=== PATIENT | female | born 1985 | race African-American/Black ===

== ENCOUNTER → 2016-10-20 | Emergency (ER) | payer OTHER ==
[2016-10-20 20:54] VITALS: BMI 18.6
--- NOTE | 2016-10-20 22:38 | PDOC ---
History of Present Illness - General History Source: Patient Exam Limitations: No Limitations - History of Present Illness Initial Comments: 10/20/16 22:46 The patient is a 30 year old female with no significant past medical history who presents to the ED for 1 day of left-sided headache and left eye pain. Patient describes her pain to the left eye as heaviness and states she feels some pins and needles sensation in the left eye with some blurry vision. States she has glasses, but does not wear them and she does not wear contacts. She also has complaints of abdominal cramping, but no nausea, vomiting, or diarrhea. The patient denies fever, chills, cough, SOB, chest pain, and palpitations. Allergies: NKDA Social History: No alcohol, tobacco, or drug use reported. Past Surgical History: None reported PCP: Dr. Remi Madera <Lian Zhang - Last Filed: 10/20/16 22:46> - General History Source: Patient <Jose Manuel Canada - Last Filed: 10/21/16 19:30> - General Chief Complaint: Headache Stated Complaint: HEADACHE/BODY ACHE/SORE THROAT Time Seen by Provider: 10/20/16 21:52 Past History <Lian Zhang - Last Filed: 10/20/16 22:46> - Past Medical History Suicide Attempt (Hx): No - Immunization History Immunization Up to Date: Yes - Psycho/Social/Smoking Cessation Hx Anxiety: No Suicidal Ideation: No Smoking Status: No Smoking History: Never smoked Number of Cigarettes Smoked Daily: 0 Hx Alcohol Use: No Drug/Substance Use Hx: No Substance Use Type: Alcohol <Jose Manuel Canada - Last Filed: 10/21/16 19:30> - Past Medical History Allergies/Adverse Reactions: Allergies Allergy/AdvReac Type Severity Reaction Status Date / Time No Known Allergies Allergy Verified 10/20/16 20:52 Home Medications: Ambulatory Orders NK [No Known Home Medication] 10/20/16 Review of Systems - Review of Systems Able to Perform ROS?: Yes Comments:: 10/20/16 22:47 CONSTITUTIONAL: Absent: fever, no chills, no fatigue EYES: +L eye pain, L eye blurry vision ENT: Absent: ear pain, no sore throat CARDIOVASCULAR: Absent: chest pain, no palpitations RESPIRATORY: Absent: cough, no SOB GI: Absent: abdominal pain, no nausea, no vomiting, no constipation, no diarrhea GENITOURINARY: Absent: dysuria, no frequency, no hematuria MUSCULOSKELETAL: Absent: back pain, no arthralgia, no myalgia SKIN: Absent: rash NEURO: +L sided headache <Lian Zhang - Last Filed: 10/20/16 22:46> *Physical Exam - Vital Signs Last Vital Signs Temp Pulse Resp BP Pulse Ox 98.4 F 94 H 18 133/72 99 10/20/16 20:52 10/20/16 20:52 10/20/16 20:52 10/20/16 20:52 10/20/16 20:52 - Physical Exam Comments: 10/20/16 22:47 GENERAL: Well-appearing, well-nourished. No apparent distress. HEENT: Normocephalic, atraumatic. PERRL, EOM intact. CARDIOVASCULAR: Normal S1, S2. Regular rate and rhythm. PULMONARY: Clear to auscultation bilaterally. ABDOMEN: Soft, non-distended, non-tender. EXTREMITIES: Normal ROM in all four extremities. No gross deformities. SKIN: Warm, dry. No rash NEUROLOGICAL: No focal neurological deficits. <Lian Zhang - Last Filed: 10/20/16 22:46> - Vital Signs Last Vital Signs Temp Pulse Resp BP Pulse Ox 98.4 F 94 H 18 133/72 99 10/20/16 20:52 10/20/16 20:52 10/20/16 20:52 10/20/16 20:52 10/20/16 20:52 <Jose Manuel Canada - Last Filed: 10/21/16 19:30> Medical Decision Making - Medical Decision Making 10/21/16 19:30 Dr. Canada: The scribe's documentation has been prepared under my direction and personally reviewed by me in its entirery. I confirm that the note above accurately reflects all work, treatment, procedures, and medical decision making performed by me. <Jose Manuel Canada - Last Filed: 10/21/16 19:30> *DC/Admit/Observation/Transfer - Attestations Scribe Attestion: 10/20/16 22:47 Documentation prepared by Lian Zhang, acting as medical aides teacher for Jose Manuel Canada MD/DO. <Lian Zhang - Last Filed: 10/20/16 22:46> - Discharge Dispostion Admit: No <Jose Manuel Canada - Last Filed: 10/21/16 19:30> Diagnosis at time of Disposition: Headache - Referrals Referrals: Remi Madera MD [Primary Care Provider] - - Patient Instructions Printed Discharge Instructions: DI for Headache Additional Instructions: Please follow up with your doctor if headache get worse. Have your eyes checked by an opthalmologist or an software sales manager. - Post Discharge Activity Work/School Note: Back to Work
[2016-10-20 22:55] LABS: URINE APPEARANCE CLEAR; URINE BILIRUBIN NEGATIVE (NEGATIVE); URINE BLOOD NEGATIVE (NEGATIVE); URINE COLOR LTYELLOW; URINE GLUCOSE (UA) NEGATIVE (NEGATIVE); URINE KETONE NEGATIVE (NEGATIVE); URINE LEUK ESTERASE NEGATIVE (NEGATIVE); URINE NITRITE NEGATIVE (NEGATIVE); URINE PROTEIN NEGATIVE (NEGATIVE); URINE UROBILINOGEN 2.0 E.U/dl E.U./dl (0.2-1.0)
[2016-10-21 00:50] VITALS: BP 141/95; PULSE 89; TEMP 99.1
== END | disposition home or self-care (01) ==
LOC: JER 20:42
DX: R51 Headache (principal)
CPT/HCPCS: 70450-TC; 81003; 84703; 99283-25

== ENCOUNTER 2016-11-16 17:01 | Emergency (ER) | payer OTHER ==
[2016-11-16 17:11] VITALS: BMI 25.0
--- NOTE | 2016-11-16 17:45 | PDOC ---
History of Present Illness - General History Source: Patient Exam Limitations: No Limitations <Eva Mascorro - Last Filed: 11/16/16 18:50> - History of Present Illness Initial Comments: 11/16/16 17:58 Patient is a 30 year old female with no significant medical hx who is presenting to the ED with nausea, suprapubic pain, and breast discharge for one day. The patient began experiencing symptoms after she got out of the shower today. She states that she started having some nausea and suprapubic pain but denies any vomiting, diarrhea, or urinary complaints. The patient states that she felt her left breast was swollen, so she squeezed them and noticed some white/tannish colored discharge expel from her left nipple. She also endorses some dizziness since onset of her symptoms. The patient is not aware if shes . Denies fevers, chills, vaginal bleeding, or vaginal discharge. LNMP: 10/30/16, G1/A1 Patient was seen in the ED one month (10/20/16) ago for headache, blurry vision and left eye pain. During her stay, she received a head CT which was WNL. <Naz Mcmahon - Last Filed: 11/16/16 19:01> <La Nena Biggs - Last Filed: 11/16/16 21:48> - General Chief Complaint: Pain Stated Complaint: ABDOMINAL PAIN Time Seen by Provider: 11/16/16 17:28 Past History - Past Medical History Suicide Attempt (Hx): No Thyroid Disease: No - Immunization History Immunization Up to Date: Yes - Psycho/Social/Smoking Cessation Hx Anxiety: No Suicidal Ideation: No Smoking Status: No Smoking History: Never smoked Have you smoked in the past 12 months: No Number of Cigarettes Smoked Daily: 0 Information on smoking cessation initiated: No Hx Alcohol Use: No Drug/Substance Use Hx: No Substance Use Type: Alcohol <Eva Mascorro - Last Filed: 11/16/16 18:50> <Naz Mcmahon - Last Filed: 11/16/16 19:01> <La Nena Biggs - Last Filed: 11/16/16 21:48> - Past Medical History Allergies/Adverse Reactions: Allergies Allergy/AdvReac Type Severity Reaction Status Date / Time No Known Allergies Allergy Verified 11/16/16 17:11 Home Medications: Ambulatory Orders NK [No Known Home Medication] 10/20/16 Review of Systems - Review of Systems Comments:: 11/16/16 17:58 CONSTITUTIONAL: Absent: fever, chills, diaphoresis, generalized weakness, malaise, loss of appetite HEENT: Absent: rhinorrhea, nasal congestion, throat pain, throat swelling, difficulty swallowing, mouth swelling, ear pain, eye pain, visual changes CARDIOVASCULAR: Absent: chest pain, syncope, palpitations, irregular heart rate, lightheadedness , peripheral edema RESPIRATORY: Absent: cough, shortness of breath, dyspnea with exertion, orthopnea, wheezing, stridor, hemoptysis BREASTS: Present: discharge, left breast swelling Absent: redness, pain GASTROINTESTINAL: Present: suprapubic pain, nausea Absent: abdominal distension, vomiting, diarrhea, constipation, melena, hematochezia GENITOURINARY: Absent: dysuria, frequency, urgency, hesitancy, hematuria, flank pain, genital pain MUSCULOSKELETAL: Absent: myalgia, arthralgia, joint swelling SKIN: Absent: rash, itching, pallor HEMATOLOGIC/IMMUNOLOGIC: Absent: easy bleeding, easy bruising, lymphadenopathy, frequent infections ENDOCRINE: Absent: unexplained weight gain, unexplained weight loss, heat intolerance, cold intolerance NEUROLOGIC: Present: dizziness Absent: headache, focal weakness or paresthesia, unsteady gait, seizure, mental status changes, bladder or bowel incontinence. PSYCHIATRIC: Absent: anxiety, depression, suicidal or homicidal ideation, hallucinations <Naz Mcmahon - Last Filed: 11/16/16 19:01> *Physical Exam - Vital Signs Last Vital Signs Temp Pulse Resp BP Pulse Ox 98.8 F 90 18 142/79 100 11/16/16 17:08 11/16/16 17:08 11/16/16 17:08 11/16/16 17:08 11/16/16 17:08 <Eva Mascorro - Last Filed: 11/16/16 18:50> - Vital Signs Last Vital Signs Temp Pulse Resp BP Pulse Ox 98.8 F 90 18 142/79 100 11/16/16 17:08 11/16/16 17:08 11/16/16 17:08 11/16/16 17:08 11/16/16 17:08 - Physical Exam Comments: 11/16/16 18:00 GENERAL: Well developed, well nourished. Awake and alert. No acute distress. HEENT: Normocephalic, atraumatic. PERRLA, EOMI. No conjunctival pallor. Sclera are non- icteric. Moist mucous membranes. Oropharynx is clear. NECK: Supple. Full ROM. No JVD. Carotid pulses 2+ and symmetric, without bruits. No thyromegaly. No lymphadenopathy. CARDIOVASCULAR: Regular rate and rhythm. No murmurs, rubs, or gallops. Distal pulses are 2+ and symmetric. BREAST: Breasts are equal. No erythema, no edema, no peau dorange. No masses felt on either side. Nipples not inverted. Clear/white discharge expressed from both breasts, mostly on the left. PULMONARY: No evidence of respiratory distress. Lungs clear to auscultation bilaterally. No wheezing, rales or rhonchi. ABDOMINAL: Soft. Suprapubic tenderness. Non-distended. No rebound or guarding. No organomegaly. Normoactive bowel sounds. MUSCULOSKELETAL: Normal range of motion at all joints. No bony deformities or tenderness. No CVA tenderness. EXTREMITIES: No cyanosis. No clubbing. No edema. No calf tenderness. SKIN: Warm and dry. Normal capillary refill. No rashes. No jaundice. NEUROLOGICAL: Alert, awake, appropriate. Cranial nerves 2-12 intact. Normal speech. Gait is normal without ataxia. PSYCHIATRIC: Cooperative. Good eye contact. Appropriate mood and affect. <Naz Mcmahon - Last Filed: 11/16/16 19:01> - Vital Signs Last Vital Signs Temp Pulse Resp BP Pulse Ox 98.2 F 85 17 135/75 98 11/16/16 19:37 11/16/16 19:37 11/16/16 19:37 11/16/16 19:37 11/16/16 19:37 <La Nena Biggs - Last Filed: 11/16/16 21:48> ED Treatment Course - ADDITIONAL ORDERS Additional order review: Laboratory Results 11/16/16 11/16/16 18:30 18:05 TSH 0.85 Free T4 1.11 Urine Color Ltyellow Urine Appearance Clear Urine pH 7.0 Ur Specific [place] 1.020 Urine Protein Negative Urine Glucose (UA) Negative Urine Ketones Negative Urine Blood Negative Urine Nitrite Negative Urine Bilirubin Negative Urine Urobilinogen Negative Ur Leukocyte Esterase Trace H Urine RBC 1 Urine WBC 9 Ur Epithelial Cells Rare Urine Bacteria Rare Urine Mucus Rare Urine HCG, Qual Negative <La Nena Biggs - Last Filed: 11/16/16 21:48> Medical Decision Making - Medical Decision Making A/P: 30 y/o afebrile female with nipple discharge today, along with nausea and lower abdominal pain. Plan is as follows: 1. UA/hcg/culture hcg - negative Will send for head CT and order Prolactin level as well as Thyroid studies to rule out pituitary adenoma. Spoke with the patient to inform her of the plan. She informs me that she was seen here in October for visual changes and had a CT scan of the head that was negative. Cancelled order for a repeat CT scan of the head. She never followed up with recommended value engineer. Will send prolactin and thyroid studies. Once blood work is resulted will page Dr. Stoddard. I am signing this patient out to my colleague: WESTON Biggs In brief, this patient is being seen in the ED for a chief complaint of: nipple discharge. I have completed the initial assessment interview note and have ordered: UA/hcg/ culture, prolactin, thyroid studies I have reviewed the following results: UA/hcg Pending results are: prolactin, thyroid Please call the Neurologist medical device sales consultant: Dr. Stoddard Plan for disposition is as follows: Pending A portion of this note was written by my scribe, under my supervision. <Eva Mascorro - Last Filed: 11/16/16 18:50> - Medical Decision Making 11/16/16 21:41 Lab does not result Prolactin levels in ED setting, this is a send out. Spoke with Dr. Stoddard and explained situation, patient complains, and symptoms she is experiencing. He would like to see patient in outpatient setting. This information was also discussed with patient and she agreed to follow up. MRI not needed at this time. <La Nena Biggs - Last Filed: 11/16/16 21:48> *DC/Admit/Observation/Transfer <Eva Mascorro - Last Filed: 11/16/16 18:50> - Attestations Scribe Attestion: 11/16/16 18:01 Documentation prepared by Naz Mcmahon, acting as hospital medical assistant for Stevenson Musa MD. <Naz Mcmahon - Last Filed: 11/16/16 19:01> - Discharge Dispostion Admit: No <La Nena Biggs - Last Filed: 11/16/16 21:48> Diagnosis at time of Disposition: Visual changes, Nipple discharge - Discharge Dispostion Disposition: HOME Condition at time of disposition: Stable - Referrals Referrals: Yang Stoddard MD [Staff Physician] - Tylor Coy MD [Staff Physician] - - Patient Instructions Printed Discharge Instructions: Pituitary Adenoma Additional Instructions: Follow up with Dr. Stoddard (Neurology). Call to schedule appointment tomorrow. Also, follow up with Dr. Coy (Endocrinology/Primary Care) to establish care. Call to schedule appointment. Follow up with both doctors, this is very important going forward in trying to come to conclusion as discussed. Return if symptoms worsen or any concerns for further evaluation. Print Language: IRISH
[2016-11-16 18:16] LABS: URINE APPEARANCE CLEAR; URINE BILIRUBIN NEGATIVE (NEGATIVE); URINE BLOOD NEGATIVE (NEGATIVE); URINE COLOR LTYELLOW; URINE GLUCOSE (UA) NEGATIVE (NEGATIVE); URINE KETONE NEGATIVE (NEGATIVE); URINE NITRITE NEGATIVE (NEGATIVE); URINE PROTEIN NEGATIVE (NEGATIVE); URINE UROBILINOGEN NEGATIVE E.U./dl (0.2-1.0)
[2016-11-16 18:19] LABS: URINE LEUK ESTERASE TRACE (NEGATIVE)
[2016-11-16 18:20] LABS: URINE RBC 1 /hpf (0-3); URINE WBC 9 /hpf (3-5)
[2016-11-16 18:21] LABS: URINE BACTERIA RARE /hpf (NONE SEEN); URINE MUCUS RARE
--- NOTE | 2016-11-16 18:27 | PDOC ---
*Physical Exam - Vital Signs Last Vital Signs Temp Pulse Resp BP Pulse Ox 98.8 F 90 18 142/79 100 11/16/16 17:08 11/16/16 17:08 11/16/16 17:08 11/16/16 17:08 11/16/16 17:08 ED Treatment Course - ADDITIONAL ORDERS Additional order review: Laboratory Results 11/16/16 18:05 Urine Color Ltyellow Urine Appearance Clear Urine pH 7.0 Urine Protein Negative Urine Glucose (UA) Negative Urine Ketones Negative Urine Blood Negative Urine Nitrite Negative Urine Bilirubin Negative Urine Urobilinogen Negative Ur Leukocyte Esterase Trace H Urine RBC 1 Urine WBC 9 Ur Epithelial Cells Rare Urine Bacteria Rare Urine Mucus Rare Urine HCG, Qual Negative Medical Decision Making - Medical Decision Making 11/16/16 18:27 Pt seen by the Advanced Practice Provider under my direct supervision Ancillary studies reviewed I agree with plan as outlined by the Advanced Practice Provider RALPH Alvarenga 11/16/16 18:48 Pt's findings are concerning for pituitary/sellar mass. Labs ordered. Must consult neurology for urgent MRI of brain for further evaluation. *DC/Admit/Observation/Transfer Diagnosis at time of Disposition: Visual changes, Nipple discharge - Discharge Dispostion Disposition: HOME Condition at time of disposition: Stable - Referrals Referrals: Yang Stoddard MD [Staff Physician] - Tylor Coy MD [Staff Physician] - - Patient Instructions Printed Discharge Instructions: Pituitary Adenoma Additional Instructions: Follow up with Dr. Stoddard (Neurology). Call to schedule appointment tomorrow. Also, follow up with Dr. Coy (Endocrinology/Primary Care) to establish care. Call to schedule appointment. Follow up with both doctors, this is very important going forward in trying to come to conclusion as discussed. Return if symptoms worsen or any concerns for further evaluation. Print Language: [place]ICAN CITIZEN - Post Discharge Activity Work/School Note: Back to Work
[2016-11-16 19:21] LABS: FREE T4 1.11 ng/dl (0.76-1.46); THYROID STIMULATING HORMONE 0.85 uIU/ml (0.358-3.74)
[2016-11-16 21:55] VITALS: BP 130/72; PULSE 78; TEMP 97.7
[2016-11-18 06:06] LABS: FREE T3 3.1 pg/mL (2.0-4.4); PROLACTIN 18.3 ng/mL (4.8-23.3)
== END 2016-11-16 22:02 | disposition home or self-care (01) ==
LOC: JER 17:01
DX: N64.52 Nipple discharge (principal); H53.8 Other visual disturbances
CPT/HCPCS: 36415; 81003; 81015; 84146; 84439; 84443; 84481; 84703; 87086; 99282-25

== ENCOUNTER 2018-04-27 23:48 | Emergency (ER) | payer OTHER ==
[2018-04-27 23:59] VITALS: BP 127/85; PULSE 86; TEMP 98.1; BMI 28.0
[2018-04-28] MEDS ORDERED: ASPIRIN 81 MG CHEWABLE TABLETS PO ONE (00:52)
--- NOTE | 2018-04-28 00:52 | PDOC ---
History of Present Illness - General Stated Complaint: CHEST PAIN/ABD PAIN Time Seen by Provider: 04/28/18 00:26 History Source: Patient Exam Limitations: No Limitations - History of Present Illness Presenting Symptoms: Chest Pain Timing/Duration: reports: constant Severity/Quality: reports: burning Location: reports: central Chest Pain Radiation: reports: back Prior Chest Pain/Cardiac Workup: reports: No prior cardiac workup Nitro Today/Relief: Yes: no nitro taken today Associated Symptoms: Yes: Chest Pain/pressure Past History - Past Medical History Allergies/Adverse Reactions: Allergies Allergy/AdvReac Type Severity Reaction Status Date / Time No Known Allergies Allergy Verified 11/16/16 17:11 Home Medications: Ambulatory Orders NK [No Known Home Medication] 10/20/16 Thyroid Disease: No - Immunization History Immunization Up to Date: Yes - Suicide/Smoking/Psychosocial Hx Smoking Status: No Smoking History: Never smoked Have you smoked in the past 12 months: No Number of Cigarettes Smoked Daily: 0 Information on smoking cessation initiated: No Hx Alcohol Use: Yes (social drinker) Drug/Substance Use Hx: No Substance Use Type: Alcohol Review of Systems - Review of Systems Is the patient limited Iranian proficient: No Constitutional: No: Symptoms Reported, See HPI, Chills, Diaphoresis, Fever, Loss of Appetite, Malaise, Night Sweats, Weakness, Weight Stable, Unintentional Wgt. Loss, Unexplained wgt Loss, Other HEENTM: No: Symptoms Reported, See HPI, Eye Pain, Blurred Vision, Tearing, Recent change in vision, Double Vision, Cataracts, Ear Pain, Ocular Prothesis, Ear Discharge, Nose Pain, Nose Congestion, Tinnitus, Nose Bleeding, Hearing Loss , Throat Pain, Throat Swelling, Mouth Pain, Dental Problems, Difficulty Swallowing, Mouth Swelling, Other Respiratory: No: Symptoms reported, See HPI, Cough, Orthopnea, Shortness of Breath, SOB with Exertion, SOB at Rest, Stridor, Wheezing, Productive cough, Hemoptysis, Other Cardiac (ROS): Yes: Chest Tightness ABD/GI: No: Symptoms Reported, See HPI, Abdominal Distended, Abd. Pain w/ defecation, Blood Streaked Bowels, Constipated, Diarrhea, Difficulty Swallowing , Nausea, Poor Appetite, Poor Fluid Intake, Rectal Bleeding, Vomiting, Indigestion, Abdominal cramping, Tarry Stools, Other : No: Symptoms Reported, See HPI, Burning, Dysuria, Discharge, Frequency, Flank Pain, Hematuria, Incontinence, Pain, Urgency, Testicular Mass, Testicular Swelling, Lesions, Testicular Pain, Other Musculoskeletal: No: Symptoms Reported, See HPI, Back Pain, Gout, Joint Pain, Joint Swelling, Muscle Pain, Muscle Weakness, Neck Pain, Joint Stiffness, Other Integumentary: No: Symptoms Reported, See HPI, Bruising, Change in Color, Change in Hair/Nails, Dryness, Erythema, Flushing, Lesions, Lumps, Pallor, Pruritus, Rash, Sweating, Other Neurological: No: Symptoms reported, See HPI, Headache, Numbness, Paresthesia, Pre-Existing Deficit, Seizure, Tingling, Tremors, Weakness, Unsteady Gait, Ataxia, Dizziness, Other Psychiatric: No: Anxiety, Depression, Frequent Crying, Stressors, Sleep Pattern Change, Emotional Problems, Mood Swings, Change in Appetite, Other Endocrine: No: Symptoms Reported, See HPI, Excessive Sweating, Flushing, Intolerance to Cold, Intolerance to Heat, Increased Hunger, Increased Thirst, Increased Urine, Unexplained Weight Gain, Unexplained Weight Loss, Change in Weight, Other Hematologic/Lymphatic: No: Symptoms Reported, See HPI, Anemia, Blood Clots, Easy Bleeding, Easy Bruising, Bleeding Diathesis, Lymph Node Abnormalities, Swollen Glands, Other *Physical Exam - Vital Signs Last Vital Signs Temp Pulse Resp BP Pulse Ox 98.1 F 86 20 127/85 100 04/27/18 23:51 04/27/18 23:51 04/27/18 23:51 04/27/18 23:51 04/27/18 23:51 - Physical Exam General Appearance: Yes: Nourished, Appropriately Dressed HEENT: positive: Normal Voice Neck: positive: Supple, Thyromegaly Respiratory/Chest: positive: Lungs Clear Cardiovascular: positive: Regular Rhythm, Regular Rate Gastrointestinal/Abdominal: positive: Normal Bowel Sounds, Soft Musculoskeletal: positive: Normal Inspection Extremity: positive: Normal Inspection, Normal Range of Motion Integumentary: positive: Normal Color, Warm Neurologic: positive: Fully Oriented, Alert, Motor Strength /5 ED Treatment Course - LABORATORY CBC & Chemistry Diagram: 04/28/18 02:03 - RADIOLOGY Radiology Studies Ordered: Category Date Time Status ABDOMEN US -LIMITED [US] Stat Ultrasound 04/28/18 00:57 Taken - Medications Given in the ED: ED Medications Discontinued Medications Generic Name Dose Route Start Last Admin Trade Name Jovana PRN Reason Stop Dose Admin Al Hydroxide/Mg Hydroxide 30 ml 04/28/18 01:03 04/28/18 01:33 Mylanta Oral Suspension - PO 04/28/18 01:04 30 ml ONCE ONE Administration Aspirin 162 mg 04/28/18 00:52 04/28/18 01:54 Asa - PO 04/28/18 00:53 Not Given ONCE ONE Medical Decision Making - Medical Decision Making 04/28/18 02:16 32-year-old female presents with chest pain radiating to her back between her shoulder blades that started this evening. She denies any nausea, vomiting, fever, chills, or cough. She denies any recent trauma. Past medical history no significant past medical history. Past surgical history fracture left leg. This patient is a nonsmoker, does occasionally drink alcohol. Last menstrual period is March 24. She does receive Deprol injections EKG is normal sinus rhythm at 83 bpm with some nonspecific T-wave abnormalities. She does have inverted T waves in V1, V2 Plan EKG, chest x-ray, CBC, troponin, test
[2018-04-28] MEDS ORDERED: MAG HYDROX/AL HYDROX/SIMETH 30 ML UNIT-DOSE CUP PO ONE (01:03)
[2018-04-28] MEDS ORDERED: MAG HYDROX/AL HYDROX/SIMETH 30 ML UNIT-DOSE CUP ONE (01:32)
[2018-04-28 02:40] LABS: BASO % 0.8 % (0-2.0); EOS % 1.9 % (0-4.5); HEMATOCRIT 41.5 % (32.4-45.2); HEMOGLOBIN 14.3 GM/dL (10.7-15.3); MCH 30.3 pg (25.7-33.7); MCHC 34.5 g/dl (32.0-36.0); MEAN CELL VOLUME 88.1 fl (80-96); MEAN PLT VOLUME 8.2 fl (7.5-11.1); MONO % 7.4 % (3.8-10.2); NEUT % 45.9 % (42.8-82.8); PLATELET COUNT 209 K/MM3 (134-434); RBC 4.71 M/mm3 (3.60-5.2); RDW 12.4 % (11.6-15.6)
[2018-04-28 02:52] LABS: INR 1.02 (0.83-1.09)
[2018-04-28 03:01] LABS: ALBUMIN 4.1 g/dl (3.4-5.0); ALK PHOS 52 U/L (45-117); ANION GAP 9 MMOL/L (8-16); BILIRUBIN,TOTAL 0.4 mg/dL (0.2-1); BLOOD UREA NITROGEN 12 mg/dL (7-18); CALCIUM 8.8 mg/dL (8.5-10.1); CHLORIDE 105 mmol/L (98-107); CO2 26 mmol/L (21-32); CREATININE 1.1 mg/dL (0.55-1.3); GLUCOSE,RANDOM 100 mg/dL (74-106); MAGNESIUM 2.3 mg/dL (1.8-2.4); POTASSIUM 3.8 mmol/L (3.5-5.1); SGOT/AST 23 U/L (15-37); SGPT/ALT 21 U/L (13-61); SODIUM 140 mmol/L (136-145); TOT PROT 7.9 g/dl (6.4-8.2)
--- NOTE | 2018-04-28 03:27 | PDOC ---
*Physical Exam - Vital Signs Last Vital Signs Temp Pulse Resp BP Pulse Ox 98.1 F 86 20 127/85 100 04/27/18 23:51 04/27/18 23:51 04/27/18 23:51 04/27/18 23:51 04/27/18 23:51 ED Treatment Course - LABORATORY CBC & Chemistry Diagram: 04/28/18 02:30 04/28/18 02:03 - ADDITIONAL ORDERS Additional order review: Laboratory Results 04/28/18 04/28/18 04/28/18 02:30 02:03 02:03 PT with INR 12.00 INR 1.02 Sodium 140 Potassium 3.8 Chloride 105 Carbon Dioxide 26 Anion Gap 9 BUN 12 Creatinine 1.1 Creat Clearance w eGFR 56.86 Random Glucose 100 Calcium 8.8 Magnesium 2.3 Total Bilirubin 0.4 AST 23 ALT 21 Alkaline Phosphatase 52 Creatine Kinase 564 H Creatine Kinase Index 0.1 CK-MB (CK-2) < 1.0 Troponin I < 0.02 Total Protein 7.9 Albumin 4.1 Serum , Qual Negative 04/28/18 02:30 RBC 4.71 MCV 88.1 MCHC 34.5 RDW 12.4 MPV 8.2 Neutrophils % 45.9 Lymphocytes % 44.0 H D Monocytes % 7.4 Eosinophils % 1.9 Basophils % 0.8 - Medications Given in the ED: ED Medications Discontinued Medications Generic Name Dose Route Start Last Admin Trade Name Arleyq PRN Reason Stop Dose Admin Al Hydroxide/Mg Hydroxide 30 ml 04/28/18 01:03 04/28/18 01:33 Mylanta Oral Suspension - PO 04/28/18 01:04 30 ml ONCE ONE Administration Aspirin 162 mg 04/28/18 00:52 04/28/18 01:54 Asa - PO 04/28/18 00:53 Not Given ONCE ONE Medical Decision Making - Medical Decision Making 04/28/18 03:25 Sign-out received from outgoing Emergency Physician Dr. Wilkerson Pt interviewed and examined Ancillary studies reviewed Case discussed in detail with oncoming Emergency Physician including history, physical exam and ancillary studies. CBC, BMP 04/28/18 02:30 04/28/18 02:03 CMP Sodium 140 mmol/L (136-145) 04/28/18 02:03 Potassium 3.8 mmol/L (3.5-5.1) 04/28/18 02:03 Chloride 105 mmol/L (98-107) 04/28/18 02:03 Carbon Dioxide 26 mmol/L (21-32) 04/28/18 02:03 Anion Gap 9 MMOL/L (8-16) 04/28/18 02:03 BUN 12 mg/dL (7-18) 04/28/18 02:03 Creatinine 1.1 mg/dL (0.55-1.3) 04/28/18 02:03 Creat Clearance w eGFR 56.86 (>60) 04/28/18 02:03 Random Glucose 100 mg/dL (74-106) 04/28/18 02:03 Calcium 8.8 mg/dL (8.5-10.1) 04/28/18 02:03 Magnesium 2.3 mg/dL (1.8-2.4) 04/28/18 02:03 Total Bilirubin 0.4 mg/dL (0.2-1) 04/28/18 02:03 AST 23 U/L (15-37) 04/28/18 02:03 ALT 21 U/L (13-61) 04/28/18 02:03 Alkaline Phosphatase 52 U/L (45-117) 04/28/18 02:03 Creatine Kinase 564 IU/L (26-192) H 04/28/18 02:03 Creatine Kinase Index 0.1 % (0.0-5.0) 04/28/18 02:03 CK-MB (CK-2) < 1.0 ng/mL (0.5-3.6) 04/28/18 02:03 Troponin I < 0.02 ng/ml (0.00-0.05) 04/28/18 02:03 Total Protein 7.9 g/dl (6.4-8.2) 04/28/18 02:03 Albumin 4.1 g/dl (3.4-5.0) 04/28/18 02:03 Serum , Qual Negative 04/28/18 02:03 ECG reviewed by me, 23:56 Nov 20. NSR 83, T wave flat avL, TWI V2, nonspecific T wave change V3, no std/georgette, QTC 437 msec Ultrasound reviewed. No acute findings. 04/28/18 03:32 The patient reported some relief from the medication. After talking with the patient, the patient noted that the symptoms worsened after eating spicier foods and coffee. I will initiate patient on protonix and pepcid for gastritis. Diet conselling given. Will have the patient follow up with PMD. I discussed the physical exam findings, ancillary test results and final diagnoses with the patient. I answered all of the patient's questions. The patient was satisfied with the care received and felt comfortable with the discharge plan and treatment plan. The patient will call their primary care physician within 24 hours to arrange follow-up and will return to the Emergency Department with any new, persistant or worsening symptoms. *DC/Admit/Observation/Transfer Diagnosis at time of Disposition: Gastritis Qualifiers: Gastritis type: other gastritis Chronicity: acute Gastritis bleeding: without bleeding Qualified Code(s): K29.00 - Acute gastritis without bleeding - Discharge Dispostion Disposition: HOME Condition at time of disposition: Improved Decision to Admit order: No - Prescriptions Prescriptions: Famotidine [Pepcid] 20 mg PO BID PRN #20 tablet PRN Reason: Gastritis Pantoprazole Sodium [Protonix] 40 mg PO DAILY #14 tablet.dr - Referrals Referrals: Stiven Vega MD [Staff Physician] - - Patient Instructions Printed Discharge Instructions: DI for Gastritis Additional Instructions: Please take 40 mg protonix daily. For additional relief, take 20 mg pepcid every 12 hours as needed. Drink plenty of fluids. Follow up with your doctor. - Post Discharge Activity
[2018-04-28] MEDS ORDERED: PANTOPRAZOLE 40 MG TABLET (FP) PO ONE (03:33)
[2018-04-28] MEDS ORDERED: RANITIDINE HCL 150 MG TABLET (FP) PO ONE (03:33)
[2018-04-28] MEDS ORDERED: RANITIDINE HCL 150 MG TABLET (FP) ONE (03:49)
[2018-04-28] MEDS ORDERED: PANTOPRAZOLE 40 MG TABLET (FP) ONE (03:49)
--- NOTE | 2018-04-28 15:39 | EKG ---
Test Reason : Blood Pressure : / mmHG Vent. Rate : 083 BPM Atrial Rate : 083 BPM P-R Int : 162 ms QRS Dur : 088 ms QT Int : 372 ms P-R-T Axes : 033 058 046 degrees QTc Int : 437 ms NORMAL SINUS RHYTHM NONSPECIFIC T WAVE ABNORMALITY ABNORMAL ECG WHEN COMPARED WITH ECG OF 22-JAN-2015 11:02, NO SIGNIFICANT CHANGE WAS FOUND Confirmed by SARINA VEGA MD ([id number]) on 04/28/2018 3:39:01 PM Referred By: Confirmed By:SARINA VEGA MD
== END 2018-04-28 04:03 | disposition home or self-care (01) ==
LOC: JER 23:48
DX: K29.70 Gastritis, unspecified, without bleeding (principal)
CPT/HCPCS: 36415; 76705-TC; 80053; 82550; 82553; 83735; 84484; 84703; 85025; 85610; 93005; 93010; 99281-25; 99282-25

== ENCOUNTER 2018-09-02 12:29 | Emergency (ER) | payer OTHER ==
[2018-09-02 12:40] VITALS: BP 123/75; PULSE 79; TEMP 98.2; BMI 25.0
--- NOTE | 2018-09-02 12:48 | PDOC ---
History of Present Illness - General Chief Complaint: Urinary Problem Stated Complaint: R/O UTI Time Seen by Provider: 09/02/18 12:47 History Source: Patient - History of Present Illness Initial Comments: 09/02/18 13:37 32-year-old female complaining of urinary frequency, dysuria and suprapubic pain for the last 2 days. Denies fever, chills, nausea, vomiting, flank pain. Denies vaginal bleeding or discharge. No past medical history Past History - Past Medical History Allergies/Adverse Reactions: Allergies Allergy/AdvReac Type Severity Reaction Status Date / Time No Known Allergies Allergy Verified 09/02/18 12:40 Home Medications: Ambulatory Orders Cefuroxime Axetil [Cefuroxime] 500 mg PO BID #20 tablet 09/02/18 Phenazopyridine HCl [Pyridium] 100 mg PO TID #20 tablet 09/02/18 COPD: No Thyroid Disease: No - Immunization History Immunization Up to Date: Yes - Suicide/Smoking/Psychosocial Hx Smoking Status: No Smoking History: Never smoked Have you smoked in the past 12 months: No Number of Cigarettes Smoked Daily: 0 Information on smoking cessation initiated: No Hx Alcohol Use: No Drug/Substance Use Hx: No Substance Use Type: Alcohol Review of Systems - Review of Systems Able to Perform ROS?: Yes Is the patient limited Kosovan proficient: No Constitutional: No: Symptoms Reported, See HPI, Chills, Diaphoresis, Fever, Loss of Appetite, Malaise, Night Sweats, Weakness, Weight Stable, Unintentional Wgt. Loss, Unexplained wgt Loss, Other : Yes: Burning, Dysuria, Frequency, Other (suprapubic pain) *Physical Exam - Vital Signs Last Vital Signs Temp Pulse Resp BP Pulse Ox 98.2 F 79 17 123/75 100 09/02/18 12:38 09/02/18 12:38 09/02/18 12:38 09/02/18 12:38 09/02/18 12:38 - Physical Exam General Appearance: Yes: Appropriately Dressed Gastrointestinal/Abdominal: positive: Normal Bowel Sounds, Tender (suprapubic area), Soft Musculoskeletal: positive: Normal Inspection. negative: CVA Tenderness Extremity: positive: Normal Capillary Refill, Normal Inspection, Normal Range of Motion Integumentary: positive: Normal Color, Dry, Warm Neurologic: positive: Fully Oriented, Alert Progress Note - Progress Note Progress Note: A: UTI p: UA UCX Urine *DC/Admit/Observation/Transfer Diagnosis at time of Disposition: UTI (urinary tract infection) Qualifiers: Urinary tract infection type: acute cystitis Hematuria presence: without hematuria Qualified Code(s): N30.00 - Acute cystitis without hematuria - Discharge Dispostion Disposition: HOME Condition at time of disposition: Stable - Prescriptions Prescriptions: Cefuroxime Axetil [Cefuroxime] 500 mg PO BID #20 tablet Phenazopyridine HCl [Pyridium] 100 mg PO TID #20 tablet - Referrals - Patient Instructions Printed Discharge Instructions: DI for Urinary Tract Infection (UTI) Additional Instructions: Drink plenty of fluids Take ibuprofen every 6 hours as needed for pain You may take Pyridium for the burning of urination. it can turn year her urine orange and can make you sweat orange Take cefuroxime as prescribed Follow-up with your primary care doctor as soon as possible. You need to repeat urine test once your antibiotic is completed. We will call you if you're antibiotic needs to be changed. - Post Discharge Activity Forms/Work/School Notes: Back to Work
[2018-09-02] MEDS ORDERED: ACETAMINOPHEN 500 MG TABLET (FP) PO ONE (13:30)
[2018-09-02 13:38] LABS: HCG,QUALITATIVE URINE Negative
[2018-09-02] MEDS ORDERED: ACETAMINOPHEN 325 MG TABLET (FP) ONE (13:43)
[2018-09-02 14:25] LABS: PH,URINE 6.5 (5.0-8.0); URINE APPEARANCE CLOUDY; URINE BILIRUBIN NEGATIVE (NEGATIVE); URINE COLOR YELLOW; URINE GLUCOSE (UA) NEGATIVE (NEGATIVE); URINE KETONE NEGATIVE (NEGATIVE); URINE LEUK ESTERASE 1+ (NEGATIVE); URINE NITRITE POSITIVE (NEGATIVE); URINE PROTEIN NEGATIVE (NEGATIVE)
[2018-09-02 14:44] LABS: EPI CELLS 0.9 /HPF (0-5); URINE BACTERIA 7007.3 /hpf (NEGATIVE); URINE RBC 0.8 /hpf (0-4); URINE WBC 25.7 /hpf (0-5)
[2018-09-02] MEDS ORDERED: CEFUROXIME AXETIL 500 MG TABLET PO ONE (14:46)
== END 2018-09-02 15:05 | disposition home or self-care (01) ==
LOC: JERFT 12:29
DX: N30.00 Acute cystitis without hematuria (principal)
CPT/HCPCS: 81003; 84703; 87086; 87186; 99281-25

== ENCOUNTER 2020-12-06 11:19 | Emergency (ER) | payer OTHER ==
[2020-12-06 11:26] VITALS: BP 149/81; PULSE 97; TEMP 98.3; BMI 25.0
[2020-12-06 12:26] LABS: URINE APPEARANCE Clear; URINE BILIRUBIN Negative (NEGATIVE); URINE COLOR Yellow; URINE GLUCOSE (UA) Negative (NEGATIVE); URINE KETONE Negative (NEGATIVE); URINE LEUK ESTERASE Negative (NEGATIVE); URINE NITRITE Positive (NEGATIVE); URINE PROTEIN Negative (NEGATIVE)
[2020-12-06 14:51] LABS: URINE RBC 0-3 /uL (0-23.9)
[2020-12-06 14:52] LABS: EPI CELLS 1+ /uL (0-25.1); URINE BACTERIA 3+ /uL (0-1359); URINE WBC 0-3 /uL (0-25.8)
== END 2020-12-06 12:42 | disposition home or self-care (01) ==
LOC: JERFT 11:19
DX: N30.90 Cystitis, unspecified without hematuria (principal); J02.9 Acute pharyngitis, unspecified
CPT/HCPCS: 81003; 87086; 87186; 87880; 99283-25

== ENCOUNTER 2021-04-27 16:30 | Emergency (ER) | payer OTHER ==
[2021-04-27 17:03] VITALS: BP 117/70; PULSE 84; TEMP 98.4; BMI 25.0
== END 2021-04-27 18:52 | disposition home or self-care (01) ==
LOC: JER 16:30
DX: J02.9 Acute pharyngitis, unspecified (principal); Z11.52 Encounter for screening for COVID-19
CPT/HCPCS: 87651; 99283-25; C9803; U0003; U0005

== ENCOUNTER 2021-12-02 06:30 | Emergency (ER) | payer OTHER ==
[2021-12-02 07:08] VITALS: TEMP 98.3; BMI 29.9
[2021-12-02] MEDS ORDERED: FAMOTIDINE 20 MG/50 ML IVPB 20 MG/50 ML MG IVPB ONE ×2 (07:57→08:54)
[2021-12-02] MEDS ORDERED: MAG HYDROX/AL HYDROX/SIMETH -MYLANTA- ORAL SUSPENSION PO ONE (07:57)
[2021-12-02] MEDS ORDERED: ACETAMINOPHEN 1000 MG/100 ML BAG IVPB ONE (07:57)
[2021-12-02] MEDS ORDERED: ACETAMINOPHEN INJECTION 100 ML IVPB ONE (08:54)
[2021-12-02] MEDS ORDERED: MAG HYDROX/AL HYDROX/SIMETH 30 ML UNIT-DOSE CUP ONE (08:54)
[2021-12-02 09:36] LABS: BASO % 0.5 % (0-2.0); EOS % 1.6 % (0-4.5); HEMATOCRIT 38.9 % (32.4-45.2); LYMPH % 41.4 % (8-40); MCH 29.9 pg (25.7-33.7); MCHC 33.4 g/dl (32.0-36.0); MEAN CELL VOLUME 89.6 fl (80-96); MEAN PLT VOLUME 7.6 fl (7.5-11.1); MONO % 7.1 % (3.8-10.2); NEUT % 49.4 % (42.8-82.8); PLATELET COUNT 201 10^3/uL (134-434); RBC 4.34 M/mm3 (3.60-5.2); WHITE BLOOD COUNT 4.8 K/mm3 (4.0-10.0)
[2021-12-02 09:54] LABS: BLOOD UREA NITROGEN 14.9 mg/dL (7-18); CALCIUM 8.6 mg/dL (8.5-10.1)
[2021-12-02 09:55] LABS: ALBUMIN 3.5 g/dl (3.4-5.0)
[2021-12-02 09:59] LABS: BILIRUBIN,TOTAL 0.2 mg/dL (0.2-1); TOT PROT 6.7 g/dl (6.4-8.2)
[2021-12-02 10:58] LABS: EPI CELLS 7 /uL (0-25.1); HYALINE CASTS 0 /uL (0-3.1); URINE APPEARANCE CLEAR; URINE BACTERIA 119 /uL (0-1359); URINE BILIRUBIN NEGATIVE (NEGATIVE); URINE COLOR YELLOW; URINE GLUCOSE (UA) NEGATIVE (NEGATIVE); URINE KETONE NEGATIVE (NEGATIVE); URINE LEUK ESTERASE NEGATIVE (NEGATIVE); URINE NITRITE NEGATIVE (NEGATIVE); URINE PROTEIN NEGATIVE (NEGATIVE); URINE RBC 4 /uL (0-23.9); URINE UROBILINOGEN 0.2 mg/dL (0.2-1.0); URINE WBC 6 /uL (0-25.8)
[2021-12-02 13:19] VITALS: BP 108/68; PULSE 81
== END 2021-12-02 13:27 | disposition home or self-care (01) ==
LOC: JER 06:30
PROC: 3E033GC Introduction of Other Therapeutic Substance into Peripheral Vein, Percutaneous Approach (ICD-10-PCS; principal; 2021-12-02)
DX: R10.13 Epigastric pain (principal)
CPT/HCPCS: 36415; 80053; 81003; 83690; 84484; 84703; 85025; 87086; 93005; 93010; 99284-25

== ENCOUNTER 2022-02-23 06:59 | Emergency (ER) | payer OTHER ==
[2022-02-23 07:26] VITALS: BP 104/68; PULSE 91; RESP 18; TEMP 98.3; BMI 25.0
[2022-02-23] MEDS ORDERED: FAMOTIDINE 20 MG TABLET PO ONE (08:07)
[2022-02-23] MEDS ORDERED: MAG HYDROX/AL HYDROX/SIMETH 30 ML UNIT-DOSE CUP PO ONE (08:07)
[2022-02-23] MEDS ORDERED: ACETAMINOPHEN 500 MG TABLET (FP) PO ONE (08:07)
[2022-02-23] MEDS ORDERED: FAMOTIDINE 20 MG TABLET ONE (08:14)
[2022-02-23] MEDS ORDERED: ACETAMINOPHEN 500 MG TABLET (FP) ONE (08:14)
[2022-02-23] MEDS ORDERED: MAG HYDROX/AL HYDROX/SIMETH 30 ML UNIT-DOSE CUP ONE (08:15)
[2022-02-23 09:51] LABS: BASO % 0.2 % (0-2.0); HEMATOCRIT 42.1 % (32.4-45.2); LYMPH % 45.1 % (8-40); MCH 29.9 pg (25.7-33.7); MCHC 33.3 g/dl (32.0-36.0); MEAN CELL VOLUME 89.6 fl (80-96); MEAN PLT VOLUME 7.6 fl (7.5-11.1); MONO % 8.1 % (3.8-10.2); NEUT % 44.6 % (42.8-82.8); PLATELET COUNT 236 10^3/uL (134-434); RBC 4.69 M/mm3 (3.60-5.2); RDW 13.3 % (11.6-15.6); WHITE BLOOD COUNT 4.9 K/mm3 (4.0-10.0)
[2022-02-23 10:11] LABS: CALCIUM 8.9 mg/dL (8.5-10.1)
[2022-02-23 10:12] LABS: ALBUMIN 3.6 g/dl (3.4-5.0); BLOOD UREA NITROGEN 13.5 mg/dL (7-18)
[2022-02-23 10:16] LABS: CREATININE 1.1 mg/dL (0.55-1.3)
[2022-02-23 10:17] LABS: BILIRUBIN,TOTAL 0.4 mg/dL (0.2-1)
== END 2022-02-23 11:36 | disposition home or self-care (01) ==
LOC: JER 06:59
DX: R51.9 Headache, unspecified (principal); R10.9 Unspecified abdominal pain; H92.02 Otalgia, left ear
CPT/HCPCS: 0241U-QW; 36415; 80053; 84703; 85025; 99284-25

== ENCOUNTER 2022-03-27 08:30 | Emergency (ER) | payer OTHER ==
[2022-03-27 08:41] VITALS: BP 126/83; PULSE 85; RESP 18; TEMP 98.5; BMI 29.9
== END 2022-03-27 10:58 | disposition home or self-care (01) ==
LOC: JER 08:30
DX: J04.0 Acute laryngitis (principal); J06.9 Acute upper respiratory infection, unspecified
CPT/HCPCS: 0241U-QW; 99283-25

== ENCOUNTER 2022-07-11 12:21 | Emergency (ER) | payer OTHER ==
[2022-07-11 12:32] VITALS: BP 127/88; PULSE 95; RESP 16; TEMP 98.9; BMI 29.9
[2022-07-11] MEDS ORDERED: ACETAMINOPHEN 325 MG TABLET (FP) PO ONE (13:29)
[2022-07-11] MEDS ORDERED: IBUPROFEN 400 MG TABLET (FP) PO ONE ×3 (13:29→13:51)
[2022-07-11] MEDS ORDERED: ACETAMINOPHEN 325 MG TABLET (FP) ONE ×2 (13:35→13:51)
== END 2022-07-11 13:32 | disposition home or self-care (01) ==
LOC: JER 12:21
DX: U07.1 COVID-19 (principal)
CPT/HCPCS: 0241U-QW; 99283-25

== ENCOUNTER 2022-11-24 15:04 | Emergency (ER) | payer OTHER ==
[2022-11-24 15:15] VITALS: BP 131/85; PULSE 98; RESP 17; TEMP 98; BMI 25.0
[2022-11-24 16:39] LABS: BASO % 0.3 % (0-2.0); EOS % 1.9 % (0-4.5); HEMATOCRIT 44.1 % (32.4-45.2); HEMOGLOBIN 14.5 GM/dL (10.7-15.3); LYMPH % 37.5 % (8-40); MCH 28.8 pg (25.7-33.7); MEAN CELL VOLUME 87.5 fl (80-96); MEAN PLT VOLUME 8.2 fl (7.5-11.1); MONO % 7.1 % (3.8-10.2); NEUT % 53.2 % (42.8-82.8); PLATELET COUNT 239 10^3/uL (134-434); RBC 5.04 M/mm3 (3.60-5.2); RDW 12.9 % (11.6-15.6); WHITE BLOOD COUNT 5.3 K/mm3 (4.0-10.0)
[2022-11-24 16:56] LABS: POTASSIUM 4.6 mmol/L (3.5-5.1)
[2022-11-24 16:58] LABS: ALBUMIN 3.8 g/dl (3.4-5.0); BLOOD UREA NITROGEN 12.5 mg/dL (7-18); CALCIUM 9.7 mg/dL (8.5-10.1)
[2022-11-24 17:01] LABS: CREATININE 1.1 mg/dL (0.55-1.3)
[2022-11-24 17:04] LABS: BILIRUBIN,TOTAL 0.5 mg/dL (0.2-1); TOT PROT 7.5 g/dl (6.4-8.2)
== END 2022-11-24 18:50 | disposition home or self-care (01) ==
LOC: JERFT 15:04
DX: N93.9 Abnormal uterine and vaginal bleeding, unspecified (principal); N88.8 Other specified noninflammatory disorders of cervix uteri
CPT/HCPCS: 36415; 76830-TC; 80053; 84703; 85025; 99284-25

== ENCOUNTER 2023-08-17 19:18 | Emergency (ER) | payer OTHER ==
[2023-08-17 19:34] VITALS: BP 131/81; PULSE 98; RESP 20; TEMP 98.4; BMI 25.0
[2023-08-17 20:37] LABS: EPI CELLS >36 /uL (0-25.1); HYALINE CASTS 0 /uL (0-3.1); PH,URINE 7.5 (5.0-8.0); URINE APPEARANCE CLOUDY; URINE BACTERIA 110 /uL (0-1359); URINE BILIRUBIN NEGATIVE (NEGATIVE); URINE COLOR YELLOW; URINE GLUCOSE (UA) NEGATIVE (NEGATIVE); URINE KETONE NEGATIVE (NEGATIVE); URINE LEUK ESTERASE NEGATIVE (NEGATIVE); URINE NITRITE NEGATIVE (NEGATIVE); URINE PROTEIN NEGATIVE (NEGATIVE); URINE RBC 15 /uL (0-23.9); URINE UROBILINOGEN 0.2 mg/dL (0.2-1.0); URINE WBC 37 /uL (0-25.8)
[2023-08-17 20:38] LABS: HCG,QUALITATIVE URINE Negative
[2023-08-17] MEDS ORDERED: ACETAMINOPHEN INJECTION 100 ML IVPB ONE (22:32)
[2023-08-17] MEDS: ACETAMINOPHEN 1000 MG/100 ML BAG IVPB ONE (22:42)
== END 2023-08-17 22:46 | disposition left against medical advice (07) ==
LOC: JER 19:18
DX: R35.0 Frequency of micturition (principal); R10.30 Lower abdominal pain, unspecified; R10.11 Right upper quadrant pain; R10.13 Epigastric pain; N39.0 Urinary tract infection, site not specified
CPT/HCPCS: 81003; 84703; 87086; 99283-25

== ENCOUNTER 2023-09-05 10:42 | Emergency (ER) | payer OTHER ==
[2023-09-05 10:55] VITALS: BP 112/76; PULSE 86; RESP 18; TEMP 98; BMI 25.7
[2023-09-05 11:24] LABS: HCG,QUALITATIVE URINE Negative
[2023-09-05 11:27] LABS: EPI CELLS >36 /uL (0-25.1); HYALINE CASTS 6 /uL (0-3.1); PH,URINE 6.5 (5.0-8.0); URINE APPEARANCE TURBID; URINE BACTERIA 7289 /uL (0-1359); URINE BILIRUBIN NEGATIVE (NEGATIVE); URINE COLOR YELLOW; URINE GLUCOSE (UA) NEGATIVE (NEGATIVE); URINE KETONE NEGATIVE (NEGATIVE); URINE LEUK ESTERASE 1+ (NEGATIVE); URINE NITRITE NEGATIVE (NEGATIVE); URINE PROTEIN TRACE (NEGATIVE); URINE RBC 13 /uL (0-23.9); URINE WBC 92 /uL (0-25.8)
[2023-09-05] MEDS ORDERED: FLUCONAZOLE 150 MG TABLET PO ONE (11:48)
[2023-09-05] MEDS ORDERED: KETOROLAC TROMETHAMINE 30 MG/1 ML VIAL ONE (11:48)
[2023-09-05 11:57] LABS: BASO % 0.7 % (0-2.0); EOS % 1.2 % (0-4.5); HEMATOCRIT 43.4 % (32.4-45.2); HEMOGLOBIN 14.6 GM/dL (10.7-15.3); MCH 29.3 pg (25.7-33.7); MCHC 33.6 g/dl (32.0-36.0); MEAN CELL VOLUME 87.2 fl (80-96); MEAN PLT VOLUME 7.8 fl (7.5-11.1); MONO % 6.8 % (3.8-10.2); NEUT % 51.3 % (42.8-82.8); PLATELET COUNT 206 10^3/uL (134-434); RBC 4.98 M/mm3 (3.60-5.2); RDW 12.8 % (11.6-15.6); WHITE BLOOD COUNT 4.9 K/mm3 (4.0-10.0)
[2023-09-05] MEDS: KETOROLAC TROMETHAMINE 30 MG/1 ML VIAL IVPUSH ONE (11:59)
[2023-09-05] MEDS: FLUCONAZOLE 50 MG TABLET PO ONE (12:00)
[2023-09-05 12:32] LABS: CHLORIDE 107 mmol/L (98-107); POTASSIUM 4.8 mmol/L (3.5-5.1); SODIUM 137 mmol/L (136-145)
[2023-09-05 12:34] LABS: CALCIUM 8.9 mg/dL (8.5-10.1); ERYTHROCYTE SEDIMENTATION RATE 7 mm/hr (0-20)
[2023-09-05 12:35] LABS: ALBUMIN 3.8 g/dl (3.4-5.0); ANION GAP 0 mmol/L (4-13); BLOOD UREA NITROGEN 10.8 mg/dL (7-18); CO2 29 mmol/L (21-32); GLUCOSE,RANDOM 95 mg/dL (74-106)
[2023-09-05 12:38] LABS: SGOT/AST 14 U/L (15-37); SGPT/ALT 15 U/L (13-61)
[2023-09-05 12:39] LABS: BILIRUBIN,TOTAL 0.7 mg/dL (0.2-1); TOT PROT 7.2 g/dl (6.4-8.2)
[2023-09-05 12:41] LABS: ALK PHOS 50 U/L (45-117)
[2023-09-05] MEDS: SODIUM CHLORIDE 0.9% 500 ML INFUS.BAG IV ONE (14:42)
[2023-09-05] MEDS ORDERED: SULFAMETHOXAZOLE/TRIMETHOPRIM 800MG/160MG D.S. TABLET ONE (16:52)
[2023-09-05] MEDS: SULFAMETHOXAZOLE/TRIMETHOPRIM 800MG/160MG D.S. TABLET PO ONE (16:53)
== END 2023-09-05 17:12 | disposition home or self-care (01) ==
LOC: JER 10:42 → JERFT 10:42
PROC: 3E0333Z Introduction of Anti-inflammatory into Peripheral Vein, Percutaneous Approach (ICD-10-PCS; principal; 2023-09-05)
DX: R10.31 Right lower quadrant pain (principal); N30.90 Cystitis, unspecified without hematuria; B37.31 Acute candidiasis of vulva and vagina; N83.201 Unspecified ovarian cyst, right side
CPT/HCPCS: 36415; 74177-TC; 76830-TC; 80053; 81003; 84703; 85025; 85651; 86140; 87070; 87077; 87086; 87205; 87491; 87591; 87661; 99285-25; Q9967

== ENCOUNTER 2024-02-24 09:10 | Emergency (ER) | payer OTHER ==
[2024-02-24 09:15] VITALS: RESP 18; BMI 25.0
[2024-02-24] MEDS ORDERED: guaiFENesin/D-METHORPHAN HB 10 ML UNIT-DOSE CUPS ONE (10:09)
[2024-02-24] MEDS ORDERED: IBUPROFEN 400 MG TABLET (FP) PO ONE (10:10)
[2024-02-24] MEDS: IBUPROFEN 400 MG TABLET (FP) PO ONE (10:13)
[2024-02-24] MEDS: guaiFENesin/D-METHORPHAN HB 10 ML UNIT-DOSE CUPS PO ONE (10:13)
[2024-02-24 11:41] LABS: THROAT:GRP A STREP NOT DETECTED (NOTDETECTED)
[2024-02-24 11:59] VITALS: BP 108/65; PULSE 76; TEMP 99.8
[2024-02-24] MEDS ORDERED: AMOX TR/POT CLAV 875MG/125MG TABLETS (FP) ONE (12:03)
[2024-02-24] MEDS: AMOX TR/POT CLAV 875MG/125MG TABLETS (FP) PO ONE (12:05)
[2024-02-24 13:34] LABS: HIV INTERPRETATION NEGATIVE (NEGATIVE)
== END 2024-02-24 12:36 | disposition home or self-care (01) ==
LOC: JERFT 09:10
DX: J01.90 Acute sinusitis, unspecified (principal); J02.9 Acute pharyngitis, unspecified; R51.9 Headache, unspecified; R05.9 Cough, unspecified; M79.10 Myalgia, unspecified site; R68.83 Chills (without fever); R11.0 Nausea; Z20.822 Contact with and (suspected) exposure to COVID-19
CPT/HCPCS: 0241U-QW; 36415; 71046-TC-FY; 86803; 87389; 87651; 99284-25

== ENCOUNTER 2024-10-09 08:33 | Emergency (ER) | payer OTHER ==
[2024-10-09 08:43] VITALS: BP 120/74; PULSE 81; RESP 18; TEMP 97.9; BMI 25.0
[2024-10-09] MEDS ORDERED: PSEUDOEPHEDRINE HCL 60 MG TABLET PO ONE (09:34)
[2024-10-09] MEDS ORDERED: PSEUDOEPHEDRINE HCL 60 MG TABLET ONE (10:12)
== END 2024-10-09 10:16 | disposition home or self-care (01) ==
LOC: JER 08:33 → JERFT 08:33
DX: J30.2 Other seasonal allergic rhinitis (principal); R09.81 Nasal congestion; J02.9 Acute pharyngitis, unspecified; H92.11 Otorrhea, right ear
CPT/HCPCS: 84703; 99283-25